=== PATIENT | male | born 1985 | race African-American/Black ===

== ENCOUNTER 2019-03-19 09:03 | Emergency (ER) | payer OTHER | END 2019-03-19 10:10 | disposition home or self-care (01) | LOC: JER 09:03 → JERFT 10:10 ==

== ENCOUNTER 2020-09-10 09:20 | Emergency (ER) | payer OTHER ==
[2020-09-10 09:26] VITALS: BMI 34.9
[2020-09-10] MEDS ORDERED: PANTOPRAZOLE SODIUM 40 MG VIAL IVPUSH ONE (09:49)
[2020-09-10] MEDS ORDERED: KETOROLAC TROMETHAMINE 30 MG/1 ML VIAL IVPUSH ONE (09:49)
[2020-09-10] MEDS ORDERED: KETOROLAC TROMETHAMINE 30 MG/1 ML VIAL ONE (10:43)
[2020-09-10] MEDS ORDERED: PANTOPRAZOLE SODIUM 40 MG/100 ML BAG IVPB ONE (10:43)
[2020-09-10 11:11] LABS: EOS % 1.3 % (0-4.5); HEMATOCRIT 46.3 % (35.4-49); HEMOGLOBIN 15.4 GM/dL (11.7-16.9); LYMPH % 40.7 % (8-40); MCH 30.2 pg (25.7-33.7); MCHC 33.2 g/dl (32.0-35.9); MEAN PLT VOLUME 9.6 fl (7.5-11.1); MONO % 10.5 % (3.8-10.2); NEUT % 46.5 % (42.8-82.8); PLATELET COUNT 218 K/MM3 (134-434); RBC 5.09 M/mm3 (4.00-5.60); RDW 13.9 % (11.9-15.9); WHITE BLOOD COUNT 5.6 K/mm3 (4.0-10.0)
[2020-09-10 11:24] LABS: POTASSIUM 4.5 mmol/L (3.5-5.1)
[2020-09-10 11:26] LABS: CALCIUM 9.3 mg/dL (8.5-10.1)
[2020-09-10 11:27] LABS: ALBUMIN 3.9 g/dl (3.4-5.0); BLOOD UREA NITROGEN 8.6 mg/dL (7-18)
[2020-09-10 11:30] LABS: CREATININE 1.2 mg/dL (0.55-1.3)
[2020-09-10 11:32] LABS: BILIRUBIN,TOTAL 0.6 mg/dL (0.2-1); TOT PROT 7.6 g/dl (6.4-8.2)
[2020-09-10] MEDS ORDERED: morphine CARPU-JECT 2 MG/1 ML DISP.SYRIN IVPUSH ONE (12:35)
[2020-09-10] MEDS ORDERED: MORPHINE SULFATE 2 MG/ML VIAL ONE (13:22)
[2020-09-10 15:42] LABS: URINE APPEARANCE CLEAR; URINE BILIRUBIN NEGATIVE (NEGATIVE); URINE COLOR YELLOW; URINE GLUCOSE (UA) NEGATIVE (NEGATIVE); URINE KETONE TRACE (NEGATIVE); URINE LEUK ESTERASE NEGATIVE (NEGATIVE); URINE NITRITE NEGATIVE (NEGATIVE); URINE PROTEIN TRACE (NEGATIVE); URINE UROBILINOGEN 0.2 mg/dL (0.2-1.0)
[2020-09-10 15:52] VITALS: BP 110/67; PULSE 96; TEMP 98.6
== END 2020-09-10 15:50 | disposition home or self-care (01) ==
LOC: JER 09:20
PROC: 3E0333Z Introduction of Anti-inflammatory into Peripheral Vein, Percutaneous Approach (ICD-10-PCS; principal; 2020-09-10)
PROC: 3E033NZ Introduction of Analgesics, Hypnotics, Sedatives into Peripheral Vein, Percutaneous Approach (ICD-10-PCS; 2020-09-10)
PROC: 3E033GC Introduction of Other Therapeutic Substance into Peripheral Vein, Percutaneous Approach (ICD-10-PCS; 2020-09-10)
DX: R10.9 Unspecified abdominal pain (principal)
CPT/HCPCS: 36415; 74177-TC; 80053; 81003; 85025; 99285-25; Q9967

== ENCOUNTER 2020-09-14 14:59 | Emergency (ER) | payer OTHER ==
[2020-09-14 15:20] VITALS: BMI 34.9
[2020-09-14] MEDS ORDERED: HYOSCYAMINE SULFATE 0.125 MG *ODT PO ONE (16:11)
[2020-09-14] MEDS ORDERED: LIDOCAINE VISCOUS 2% ORAL/TOP 20 ML UNIT-DOSE CUP MM ONE (16:11)
[2020-09-14] MEDS ORDERED: MAG HYDROX/AL HYDROX/SIMETH 30 ML UNIT-DOSE CUP PO ONE (16:11)
[2020-09-14] MEDS ORDERED: LIDOCAINE VISCOUS 2% ORAL/TOP 20 ML UNIT-DOSE CUP ONE (16:26)
[2020-09-14] MEDS ORDERED: MAG HYDROX/AL HYDROX/SIMETH 30 ML UNIT-DOSE CUP ONE (16:26)
[2020-09-14 19:10] VITALS: BP 127/73; PULSE 79; TEMP 98
== END 2020-09-14 18:15 | disposition home or self-care (01) ==
LOC: JER 14:59
DX: K25.9 Gastric ulcer, unspecified as acute or chronic, without hemorrhage or perforation (principal); R10.9 Unspecified abdominal pain
CPT/HCPCS: 99283-25

== ENCOUNTER 2020-10-06 03:14 | Emergency (ER) | payer OTHER ==
[2020-10-06] MEDS ORDERED: SODIUM CHLORIDE 1,000 ML IV SCH ×2 (03:45→04:04)
[2020-10-06 04:01] VITALS: TEMP 97.9; BMI 36.0
[2020-10-06 04:27] LABS: BASO % 0.8 % (0-2.0); EOS % 1.4 % (0-4.5); HEMOGLOBIN 12.8 GM/dL (11.7-16.9); MCH 29.9 pg (25.7-33.7); MCHC 32.9 g/dl (32.0-35.9); MEAN PLT VOLUME 9.1 fl (7.5-11.1); MONO % 15.2 % (3.8-10.2); NEUT % 58.6 % (42.8-82.8); PLATELET COUNT 213 K/MM3 (134-434); RBC 4.29 M/mm3 (4.00-5.60); RDW 13.4 % (11.9-15.9); WHITE BLOOD COUNT 7.2 K/mm3 (4.0-10.0)
[2020-10-06 04:36] LABS: CHLORIDE 104 mmol/L (98-107); POTASSIUM 3.9 mmol/L (3.5-5.1); SODIUM 138 mmol/L (136-145)
[2020-10-06 04:38] LABS: CALCIUM 8.9 mg/dL (8.5-10.1)
[2020-10-06 04:39] LABS: ALBUMIN 3.7 g/dl (3.4-5.0); BLOOD UREA NITROGEN 16.6 mg/dL (7-18); GLUCOSE,RANDOM 126 mg/dL (74-106)
[2020-10-06 04:42] LABS: CREATININE 1.3 mg/dL (0.55-1.3); SGOT/AST 41 U/L (15-37); SGPT/ALT 70 U/L (13-61)
[2020-10-06 04:43] LABS: BILIRUBIN,TOTAL 0.3 mg/dL (0.2-1)
[2020-10-06 04:44] LABS: TOT PROT 6.7 g/dl (6.4-8.2)
[2020-10-06 04:45] LABS: ALK PHOS 54 U/L (45-117)
[2020-10-06 05:33] LABS: ANION GAP 5 MMOL/L (8-16); CO2 30 mmol/L (21-32)
[2020-10-06 08:19] VITALS: BP 136/103; PULSE 85
== END 2020-10-06 08:20 | disposition home or self-care (01) ==
LOC: JER 03:14
PROC: 3E0337Z Introduction of Electrolytic and Water Balance Substance into Peripheral Vein, Percutaneous Approach (ICD-10-PCS; principal; 2020-10-06)
DX: R07.9 Chest pain, unspecified (principal); R42 Dizziness and giddiness
CPT/HCPCS: 36415; 71045-TC-FY; 80053; 84484; 85025; 93005; 93010; 99285-25

== ENCOUNTER 2020-10-23 16:07 | Emergency (ER) | payer OTHER ==
[2020-10-23 17:03] VITALS: BP 119/76; PULSE 95; TEMP 98.3; BMI 34.9
== END 2020-10-23 17:36 | disposition home or self-care (01) ==
LOC: JER 16:07
DX: S76.919A Strain of unspecified muscles, fascia and tendons at thigh level, unspecified thigh, initial encounter (principal)
CPT/HCPCS: 99282-25

== ENCOUNTER 2020-11-07 19:19 | Emergency (ER) | payer OTHER ==
[2020-11-07 19:38] VITALS: BP 122/78; PULSE 88; TEMP 97.4; BMI 34.9
[2020-11-07 21:47] LABS: BASO % 0.7 % (0-2.0); EOS % 1.1 % (0-4.5); LYMPH % 29.3 % (8-40); MCH 30.2 pg (25.7-33.7); MCHC 33.4 g/dl (32.0-35.9); MEAN CELL VOLUME 90.4 fl (80-96); MEAN PLT VOLUME 9.5 fl (7.5-11.1); NEUT % 58.9 % (42.8-82.8); PLATELET COUNT 266 K/MM3 (134-434); RBC 4.98 M/mm3 (4.00-5.60); WHITE BLOOD COUNT 8.3 K/mm3 (4.0-10.0)
[2020-11-07] MEDS ORDERED: SODIUM CHLORIDE 0.9% 500 ML INFUS.BAG IV ONE (21:51)
[2020-11-07 22:02] LABS: CHLORIDE 106 mmol/L (98-107); SODIUM 140 mmol/L (136-145)
[2020-11-07 22:06] LABS: ALBUMIN 4.1 g/dl (3.4-5.0); ANION GAP 5 MMOL/L (8-16); BLOOD UREA NITROGEN 9.1 mg/dL (7-18); CALCIUM 9.6 mg/dL (8.5-10.1); CO2 28 mmol/L (21-32)
[2020-11-07 22:07] LABS: GLUCOSE,RANDOM 84 mg/dL (74-106)
[2020-11-07 22:09] LABS: SGOT/AST 33 U/L (15-37); SGPT/ALT 61 U/L (13-61)
[2020-11-07 22:10] LABS: CREATININE 1.2 mg/dL (0.55-1.3)
[2020-11-07 22:11] LABS: BILIRUBIN,TOTAL 0.4 mg/dL (0.2-1); TOT PROT 7.9 g/dl (6.4-8.2)
[2020-11-07 22:12] LABS: ALK PHOS 59 U/L (45-117)
== END 2020-11-07 23:39 | disposition home or self-care (01) ==
LOC: JER 19:19
DX: R00.2 Palpitations (principal); R06.02 Shortness of breath
CPT/HCPCS: 36415; 71046-TC-FY; 80053; 82550; 82553; 84443; 84484; 85025; 93005; 93010; 99285-25

== ENCOUNTER 2020-11-11 18:39 | Emergency (ER) | payer OTHER ==
[2020-11-11 18:48] VITALS: TEMP 98.6; BMI 33.4
[2020-11-11] MEDS ORDERED: SODIUM CHLORIDE 1,000 ML IV STA (19:20)
[2020-11-11] MEDS ORDERED: ACETAMINOPHEN 1000 MG/100 ML VIAL (NON FORMULARY) IVPB ONE (19:21)
[2020-11-11] MEDS ORDERED: ACETAMINOPHEN INJECTION 100 ML IVPB ONE (19:49)
[2020-11-11 20:17] LABS: BASO % 0.7 % (0-2.0); HEMATOCRIT 44.7 % (35.4-49); HEMOGLOBIN 14.4 GM/dL (11.7-16.9); LYMPH % 41.3 % (8-40); MCH 29.5 pg (25.7-33.7); MCHC 32.3 g/dl (32.0-35.9); MEAN CELL VOLUME 91.5 fl (80-96); MEAN PLT VOLUME 9.4 fl (7.5-11.1); MONO % 12.6 % (3.8-10.2); NEUT % 43.4 % (42.8-82.8); PLATELET COUNT 252 K/MM3 (134-434); RBC 4.89 M/mm3 (4.00-5.60); RDW 13.9 % (11.9-15.9); WHITE BLOOD COUNT 7.2 K/mm3 (4.0-10.0)
[2020-11-11 20:31] LABS: INR 1.08 (0.83-1.09); PROTHROMBIN TIME (PATIENT) 13.2 SEC (9.7-13.0)
[2020-11-11 20:34] LABS: ACTIVATED PTT 30.8 SECONDS (25.2-36.5)
[2020-11-11 20:40] LABS: CHLORIDE 105 mmol/L (98-107); POTASSIUM 3.9 mmol/L (3.5-5.1); SODIUM 140 mmol/L (136-145)
[2020-11-11 20:42] LABS: ALBUMIN 3.9 g/dl (3.4-5.0); ANION GAP 6 MMOL/L (8-16); BLOOD UREA NITROGEN 12.4 mg/dL (7-18); CALCIUM 8.9 mg/dL (8.5-10.1); CO2 28 mmol/L (21-32)
[2020-11-11 20:43] LABS: GLUCOSE,RANDOM 98 mg/dL (74-106)
[2020-11-11 20:45] LABS: SGOT/AST 28 U/L (15-37); SGPT/ALT 44 U/L (13-61)
[2020-11-11 20:46] LABS: CREATININE 1.3 mg/dL (0.55-1.3)
[2020-11-11 20:47] LABS: BILIRUBIN,TOTAL 0.3 mg/dL (0.2-1); TOT PROT 7.4 g/dl (6.4-8.2)
[2020-11-11 20:48] LABS: ALK PHOS 55 U/L (45-117)
[2020-11-11 21:36] VITALS: BP 132/70; PULSE 80
== END 2020-11-11 23:55 | disposition home or self-care (01) ==
LOC: JER 18:39
PROC: 3E033NZ Introduction of Analgesics, Hypnotics, Sedatives into Peripheral Vein, Percutaneous Approach (ICD-10-PCS; principal; 2020-11-11)
PROC: 3E0337Z Introduction of Electrolytic and Water Balance Substance into Peripheral Vein, Percutaneous Approach (ICD-10-PCS; 2020-11-11)
DX: R19.7 Diarrhea, unspecified (principal); R07.1 Chest pain on breathing
CPT/HCPCS: 36415; 71045-TC-FY; 71275-TC; 80053; 82550; 82553; 83735; 84484; 85025; 85379; 85610; 85730; 93005; 93010; 99285-25; C9803; J0131; Q9967; U0003

== ENCOUNTER 2020-11-17 11:26 | Emergency (ER) | payer OTHER ==
[2020-11-17 11:49] VITALS: BMI 34.9
[2020-11-17 12:45] LABS: BASO % 1.1 % (0-2.0); EOS % 0.4 % (0-4.5); HEMATOCRIT 43.1 % (35.4-49); HEMOGLOBIN 14.3 GM/dL (11.7-16.9); LYMPH % 24.7 % (8-40); MCH 30.2 pg (25.7-33.7); MCHC 33.2 g/dl (32.0-35.9); MEAN PLT VOLUME 9.4 fl (7.5-11.1); MONO % 8.3 % (3.8-10.2); NEUT % 65.5 % (42.8-82.8); PLATELET COUNT 248 K/MM3 (134-434); RBC 4.73 M/mm3 (4.00-5.60); RDW 13.7 % (11.9-15.9); WHITE BLOOD COUNT 7.7 K/mm3 (4.0-10.0)
[2020-11-17 13:01] LABS: CHLORIDE 106 mmol/L (98-107); POTASSIUM 3.9 mmol/L (3.5-5.1); SODIUM 139 mmol/L (136-145)
[2020-11-17 13:03] LABS: ANION GAP 5 MMOL/L (8-16); BLOOD UREA NITROGEN 10.3 mg/dL (7-18); CALCIUM 9.2 mg/dL (8.5-10.1); CO2 28 mmol/L (21-32); GLUCOSE,RANDOM 113 mg/dL (74-106)
[2020-11-17 13:07] LABS: CREATININE 1.2 mg/dL (0.55-1.3)
[2020-11-17 13:22] VITALS: BP 138/71; PULSE 87; TEMP 98.2
== END 2020-11-17 13:23 | disposition home or self-care (01) ==
LOC: JER 11:26
DX: R07.9 Chest pain, unspecified (principal)
CPT/HCPCS: 36415; 80048; 84484; 85025; 93005; 93010; 99284-25

== ENCOUNTER 2020-11-21 13:59 | Emergency (ER) | payer OTHER ==
[2020-11-21 14:13] VITALS: BMI 36.0
[2020-11-21 15:43] VITALS: BP 122/77; PULSE 116; TEMP 98
== END 2020-11-21 15:45 | disposition home or self-care (01) ==
LOC: JER 13:59
DX: R07.89 Other chest pain (principal)
CPT/HCPCS: 93005; 93010; 99285-25

== ENCOUNTER 2020-11-29 11:08 | Emergency (ER) | payer OTHER ==
[2020-11-29 11:22] VITALS: BP 147/90; PULSE 119; TEMP 98.5; BMI 36.0
[2020-11-29] MEDS ORDERED: PENICILLIN G BENZATHINE 2,400,000 UNIT/4 ML PFS IM ONE (11:23)
[2020-11-29] MEDS ORDERED: PENICILLIN G BENZATHINE 1,200,000 UNIT/2 ML PFS IM ONE (11:35)
== END 2020-11-29 13:26 | disposition home or self-care (01) ==
LOC: JERFT 11:08
DX: A53.9 Syphilis, unspecified (principal)
CPT/HCPCS: 99284-25

== ENCOUNTER 2021-02-03 16:21 | Emergency (ER) | payer OTHER ==
[2021-02-03 16:26] VITALS: TEMP 97; BMI 36.0
[2021-02-03 17:17] LABS: BASO % 0.9 % (0-2.0); EOS % 1.2 % (0-4.5); HEMATOCRIT 44.3 % (35.4-49); HEMOGLOBIN 14.6 GM/dL (11.7-16.9); LYMPH % 25.8 % (8-40); MCH 29.9 pg (25.7-33.7); MEAN CELL VOLUME 90.4 fl (80-96); MEAN PLT VOLUME 9.2 fl (7.5-11.1); MONO % 9.7 % (3.8-10.2); NEUT % 62.4 % (42.8-82.8); PLATELET COUNT 246 K/MM3 (134-434); RDW 14.1 % (11.9-15.9); WHITE BLOOD COUNT 7.8 K/mm3 (4.0-10.0)
[2021-02-03 17:40] LABS: CHLORIDE 106 mmol/L (98-107); SODIUM 138 mmol/L (136-145)
[2021-02-03 17:42] LABS: CALCIUM 9.6 mg/dL (8.5-10.1)
[2021-02-03 17:43] LABS: ALBUMIN 4.1 g/dl (3.4-5.0); ANION GAP 6 MMOL/L (8-16); BLOOD UREA NITROGEN 16.5 mg/dL (7-18); CO2 27 mmol/L (21-32); GLUCOSE,RANDOM 116 mg/dL (74-106)
[2021-02-03 17:46] LABS: CREATININE 1.6 mg/dL (0.55-1.3); SGOT/AST 31 U/L (15-37); SGPT/ALT 44 U/L (13-61)
[2021-02-03 17:48] LABS: BILIRUBIN,TOTAL 0.7 mg/dL (0.2-1); TOT PROT 7.6 g/dl (6.4-8.2)
[2021-02-03 17:49] LABS: ALK PHOS 59 U/L (45-117)
[2021-02-03] MEDS ORDERED: LACTATED RINGERS SOLUTION 1000 ML INFUS.BAG IV ONE (18:32)
[2021-02-03] MEDS: SODIUM CHLORIDE 0.9% 500 ML INFUS.BAG IV ONE ×2 (18:34→18:36)
[2021-02-03 19:33] VITALS: BP 136/82
[2021-02-03 20:41] VITALS: PULSE 94
== END 2021-02-03 19:33 | disposition home or self-care (01) ==
LOC: JER 16:21
DX: F19.929 Other psychoactive substance use, unspecified with intoxication, unspecified (principal)
CPT/HCPCS: 36415; 80053; 82550; 82553; 84484; 85025; 93005; 93010; 99284-25

== ENCOUNTER 2021-03-08 10:56 | Emergency (ER) | payer OTHER ==
[2021-03-08 11:08] VITALS: TEMP 98.2; BMI 34.9
[2021-03-08] MEDS ORDERED: ACETAMINOPHEN 325 MG TABLET (FP) PO ONE (12:14)
[2021-03-08] MEDS ORDERED: ACETAMINOPHEN 325 MG TABLET (FP) ONE (12:17)
[2021-03-08 12:45] VITALS: BP 130/76; PULSE 83
== END 2021-03-08 13:31 | disposition home or self-care (01) ==
LOC: JER 10:56
DX: R07.9 Chest pain, unspecified (principal)
CPT/HCPCS: 36415; 71046-TC-FY; 82550; 82553; 84484; 93005; 93010; 99285-25